=== PATIENT | male | born 1995 | race Caucasian/White ===

== ENCOUNTER 2025-06-02 00:18 | Emergency (ER) | payer SELFPAY ==
[~2025-06-02] VITALS: Ht 170.2 cm; Wt 109.0 kg
[2025-06-02 00:30] VITALS: O2SAT 98
[2025-06-02 01:33] VITALS: BP 146/92; PULSE 76; RESP 18; TEMP 36.8; O2SAT 99
== END 2025-06-02 01:34 | disposition home or self-care (01) ==
LOC: ER 00:45
DX: S61.411D Laceration without foreign body of right hand, subsequent encounter (principal); I10 Essential (primary) hypertension; X58.XXXD Exposure to other specified factors, subsequent encounter
CPT/HCPCS: 99281